=== PATIENT | male | born 1955 | race Caucasian/White ===

== ENCOUNTER → 2016-08-29 | Outpatient (CLI) | payer MEDICARE, OTHER ==
--- NOTE | 2016-08-29 08:11 | RAD ---
Carotid ultrasound, 08/29/2016: History: CVA Duplex evaluation of the carotid arteries in neck was performed including grayscale, color-flow and spectral Doppler analysis. There is mild atherosclerotic plaquing at both carotid bifurcations. The plaques are partially calcified. On the right the peak systolic velocity in the internal carotid artery is 56 cm/s with an end-diastolic velocity of 20 cm/s. On the left the peak systolic velocity in the internal carotid artery is 77 cm/s with an end-diastolic velocity of 25 cm/s. No significant velocity acceleration is seen at either carotid bifurcation to suggest hemodynamically significant stenosis. Antegrade flow is present in both vertebral arteries in the neck. IMPRESSION: Mild atherosclerotic plaquing at both carotid bifurcations with underlying luminal narrowing in the 0-50% diameter range bilaterally. Note: Stenosis calculations for CT, MRA and conventional angiography are based upon determination of the distal ICA diameter in accordance with the NASCET methodology. Stenosis calculations for Doppler studies are derived from validated velocity criteria which are known to correlate with NASCET methodology of determining stenosis.
--- NOTE | 2016-08-29 08:15 | RAD ---
CT of the head without contrast, 08/29/2016: History: Possible stroke, slurred speech, cheek swelling The ventricles are within normal limits in size. There is no shift of the midline structures. There is no evidence of acute intracranial hemorrhage or mass effect. IMPRESSION: No significant abnormality is detected. PQRS Compliance Statement: One or more of the following individualized dose reduction techniques were utilized for this examination: 1. Automated exposure control 2. Adjustment of the mA and/or kV according to patient size 3. Use of iterative reconstruction technique
--- NOTE | 2016-08-29 11:18 | CARD ---
APPROVED REPORT EXAM: Two-dimensional and M-mode echocardiogram with Doppler and color Doppler. Other Information Quality : Good INDICATION CVA/TIA 2D DIMENSIONS RVDd3.4 (2.9-3.5cm)Left Atrium(2D)4.2 (1.6-4.0cm) IVSd1.0 (0.7-1.1cm)Aortic Root(2D)2.9 (2.0-3.7cm) LVDd4.7 (3.9-5.9cm)LVOT Diameter2.2 (1.8-2.4cm) PWd1.0 (0.7-1.1cm)LVDs2.8 (2.5-4.0cm) FS (%) 39.9 %SV71.1 ml LVEF(%)60.0 (>50%) Aortic Valve AoV Peak Roman.147.3cm/sAoV VTI27.3cm AO Peak GR.8.7mmHgLVOT Peak Roman.130.5cm/s LVOT VTI 26.09cmAO Mean GR.5mmHg HANNAH (VMAX)3.01rw4LYI (VTI)3.64cm2 Mitral Valve MV E Htkhcnsa23.1cm/sMV DECEL [id number] MV A Ryrdwifj52.2cm/sMV PMR10zu E/A Ratio0.9MVA (PHT)2.73cm2 TDI E/Lateral E'9.8E/Medial E'9.9 Tricuspid Valve TR P. Bhgaswwx656hl/sRAP VMFSJYJW7hqFk TR Peak Gr.89qkMpYTTS55cfQj Pulmonary Vein S1 Hvuopvhf85.1cm/sD2 Ixztbonc76.4cm/s PVa [id number] LEFT VENTRICLE The left ventricle is normal size. There is normal left ventricular wall thickness. The left ventricu lar systolic function is normal. The Ejection Fraction is 55-60%. There is normal LV segmental wall m otion. Transmitral Doppler flow pattern is Grade I-abnormal relaxation pattern. RIGHT VENTRICLE The right ventricle is normal size. The right ventricular systolic function is normal. ATRIA The left atrium is mildly dilated. The right atrium size is normal. The interatrial septum is intact with no evidence for an atrial septal defect or patent foramen ovale as noted on 2-D or Doppler imagi ng. AORTIC VALVE The aortic valve is normal in structure and function. Doppler and Color Flow revealed no significant aortic regurgitation. There is no significant aortic valvular stenosis. MITRAL VALVE The mitral valve is normal in structure and function. There is no evidence of mitral valve prolapse. There is no mitral valve stenosis. Doppler and Color-flow revealed trace mitral regurgitation. TRICUSPID VALVE The tricuspid valve is normal in structure and function. Doppler and Color Flow revealed trace tricus pid regurgitation. The PA pressure was estimated at 21 mmHg. There is no tricuspid valve stenosis. PULMONIC VALVE The pulmonary valve is normal in structure and function. Doppler and Color Flow revealed mild pulmoni c valvular regurgitation. There is no pulmonic valvular stenosis. GREAT VESSELS The aortic root is normal in size. The ascending aorta is normal in size. The IVC is normal in size a nd collapses >50% with inspiration. PERICARDIAL EFFUSION There is no evidence of significant pericardial effusion. Critical Notification Critical Value: No <Conclusion> The left ventricular systolic function is normal. The Ejection Fraction is 55-60%. There is normal LV segmental wall motion. Transmitral Doppler flow pattern is Grade I-abnormal relaxation pattern. Trace mitral regurgitation. Trace tricuspid regurgitation. The PA pressure was estimated at 21 mmHg. There is no evidence of significant pericardial effusion.
== END | disposition home or self-care (01) ==
LOC: US 06:56
PROVIDERS: ATTEND Internal Medicine
DX: I08.1 Rheumatic disorders of both mitral and tricuspid valves (principal); I63.9 Cerebral infarction, unspecified; I65.23 Occlusion and stenosis of bilateral carotid arteries
CPT/HCPCS: 70450; 93306; 93880

== ENCOUNTER 2016-09-05 18:58 | Emergency (ER) | payer OTHER ==
[~2016-09-05] VITALS: Ht 175.3 cm; Wt 99.8 kg
[2016-09-05 19:26] LABS: BILIRUBIN,URINE NEGATIVE (NEG); GLUCOSE,URINE NEGATIVE (NEG); NITRITE,URINE NEGATIVE (NEG); PROTEIN,URINE NEGATIVE (NEG-TRACE); UROBILINOGEN,URINE 0.2 mg/dL (0.2 mg/dL)
[2016-09-05 19:31] LABS: BACTERIA,URINE FEW /HPF (0-FEW); RBC,URINE >40 /HPF (0-2)
[2016-09-05 19:32] LABS: SQUAMOUS EPITHELIAL CELL,UR FEW /LPF
[2016-09-05] MEDS ORDERED: IV NORMAL SALINE 1000ML BAG 1,000 ML IV ONE (20:00)
[2016-09-05] MEDS ORDERED: ONDANSETRON PF 4 MG/2 ML VIAL. IV ONE (20:00)
[2016-09-05] MEDS ORDERED: HYDROmorphone 2 MG/ML VIAL IV PRN (20:00)
[2016-09-05 20:18] LABS: BASO # 0.1 x10^3/uL (0.0-0.2); BASO % 1 % (0-3); EOS % 1 % (0-3); HEMATOCRIT 42.7 % (39.0-53.0); HEMOGLOBIN 14.4 g/dL (13.0-17.5); LYMPH # 1.4 x10^3/uL (1.0-4.8); LYMPH % 14 % (24-48); MEAN CORPUSCULAR HEMOGLOBIN 29 pg (25-35); MEAN CORPUSCULAR HGB CONC 34 g/dL (31-37); MEAN CORPUSCULAR VOLUME 86 fL (79-100); MONO % 6 % (0-9); NEUT % 79 % (31-73); PLATELET COUNT 209 x10^3/uL (140-400); RED BLOOD COUNT 4.95 x10^6/uL (4.30-5.70); RED CELL DISTRIBUTION WIDTH 13.9 % (11.5-14.5)
[2016-09-05] MEDS ORDERED: ONDA4TAB10 SL (20:27)
[2016-09-05] MEDS ORDERED: MORP15TA PO (20:27)
--- NOTE | 2016-09-05 20:27 | PHYS DOC ---
Past Medical History Past Medical History: Diabetes-Type II, GERD, High Cholesterol, Hypertension, Other Additional Past Medical Histor: SLURRED SPEECH Additional Past Surgical Histo: EYE SX, COLONOSCOPY Alcohol Use: Heavy Drug Use: None Adult General Chief Complaint Chief Complaint: FLANK PAIN HPI HPI 61-year-old male presenting to the emergency department today with right flank pain primarily. His pain is been present for proximally 7 days. It radiates from the flank down into the groin. He denies dysuria or hematuria. His been taking ibuprofen with mild relief. The pain is moderate to severe intermittent and without alleviating factors. Review of systems is negative for syncope, lightheadedness, abdominal pain nausea vomiting or diaphoresis. All other review of systems is negative unless otherwise noted in history of present illness. Review of Systems Review of Systems SEE ABOVE. Current Medications Current Medications Current Medications Medications (Trade) Dose Ordered Sig/Estrella Start Time Stop Time Status Last Admin Dose Admin Hydromorphone HCl (Dilaudid) 0.5 mg PRN Q1HR PRN 09/05/16 20:00 09/05/16 20:23 0.5 MG Ondansetron HCl (Zofran) 4 mg 1X ONCE 09/05/16 20:00 09/05/16 20:01 DC 09/05/16 20:23 4 MG Sodium Chloride 1,000 ml @ 1,000 mls/hr 1X ONCE 09/05/16 20:00 09/05/16 20:59 09/05/16 20:23 1,000 MLS/HR Allergies Allergies Allergies Coded Allergies Type Severity Reaction Last Updated Verified No Known Drug Allergies 09/05/16 No Physical Exam Physical Exam Constitutional: Well developed, well nourished, no acute distress, non-toxic appearance. [] HENT: Normocephalic, atraumatic, bilateral external ears normal, oropharynx moist, no oral exudates, nose normal. Eyes: PERRLA, EOMI, conjunctiva normal, no discharge. [] Neck: Normal range of motion, no tenderness, supple, no stridor. [] Cardiovascular:Heart rate regular rhythm, no murmur [] Lungs & Thorax: Bilateral breath sounds clear to auscultation Abdomen: Soft nontender abdomen without rebound tenderness or guarding present. Negative McBurneys point. Negative Gonzalez sign. No ecchymosis present. Skin: Warm, dry, no erythema, no rash. Back: No tenderness, the patient's right CVA is mildly tender to palpation. Extremities: No tenderness, no cyanosis, no clubbing, ROM intact, no edema. Neurologic: Alert and oriented X 3, normal motor function, normal sensory function, no focal deficits noted. [] Psychologic: Affect normal, judgement normal, mood normal. [] Current Patient Data Vital Signs Vital Signs Date Time Temp Pulse Resp B/P (MAP) Pulse Ox O2 Delivery O2 Flow Rate FiO2 09/05/16 19:10 98.5 80 16 187/109 (135) 94 Room Air 98.5 Lab Values Laboratory Tests Test 09/05/16 19:10 09/05/16 20:10 Urine Collection Type Unknown Urine Color Yellow Urine Clarity Clear Urine pH 5.0 Urine Specific [place] 1.025 Urine Protein Negative mg/dL (NEG-TRACE) Urine Glucose (UA) Negative mg/dL (NEG) Urine Ketones (Stick) Negative mg/dL (NEG) Urine Blood Large (NEG) Urine Nitrite Negative (NEG) Urine Bilirubin Negative (NEG) Urine Urobilinogen Dipstick 0.2 mg/dL (0.2 mg/dL) Urine Leukocyte Esterase Small (NEG) Urine RBC >40 /HPF (0-2) Urine WBC 5-10 /HPF (0-4) Urine Squamous Epithelial Cells Few /LPF Urine Bacteria Few /HPF (0-FEW) Urine Hyaline Casts Few /HPF Urine Mucus Mod /LPF White Blood Count 10.0 x10^3/uL (4.0-11.0) Red Blood Count 4.95 x10^6/uL (4.30-5.70) Hemoglobin 14.4 g/dL (13.0-17.5) Hematocrit 42.7 % (39.0-53.0) Mean Corpuscular Volume 86 fL (79-100) Mean Corpuscular Hemoglobin 29 pg (25-35) Mean Corpuscular Hemoglobin Concent 34 g/dL (31-37) Red Cell Distribution Width 13.9 % (11.5-14.5) Platelet Count 209 x10^3/uL (140-400) Neutrophils (%) (Auto) 79 % (31-73) H Lymphocytes (%) (Auto) 14 % (24-48) L Monocytes (%) (Auto) 6 % (0-9) Eosinophils (%) (Auto) 1 % (0-3) Basophils (%) (Auto) 1 % (0-3) Neutrophils # (Auto) 7.9 x10^3uL (1.8-7.7) H Lymphocytes # (Auto) 1.4 x10^3/uL (1.0-4.8) Monocytes # (Auto) 0.6 x10^3/uL (0.0-1.1) Eosinophils # (Auto) 0.1 x10^3/uL (0.0-0.7) Basophils # (Auto) 0.1 x10^3/uL (0.0-0.2) Sodium Level 140 mmol/L (136-145) Potassium Level 4.4 mmol/L (3.5-5.1) Chloride Level 102 mmol/L (98-107) Carbon Dioxide Level 27 mmol/L (21-32) Anion Gap 11 (6-14) Blood Urea Nitrogen 16 mg/dL (8-26) Creatinine 1.3 mg/dL (0.7-1.3) Estimated GFR (Cockcroft-Gault) 56.1 Glucose Level 173 mg/dL (70-99) H Calcium Level 9.2 mg/dL (8.5-10.1) Total Bilirubin 0.4 mg/dL (0.2-1.0) Direct Bilirubin < 0.1 mg/dL (0.0-0.2) Aspartate Amino Transferase (AST) 31 U/L (15-37) Alanine Aminotransferase (ALT) 27 U/L (16-63) Alkaline Phosphatase 83 U/L (46-116) Total Protein 8.0 g/dL (6.4-8.2) Albumin 4.1 g/dL (3.4-5.0) Laboratory Tests 09/05/16 20:10 Laboratory Tests 09/05/16 20:10 EKG EKG [] Radiology/Procedures Radiology/Procedures [] Course & Med Decision Making Course & Med Decision Making Pertinent Labs and Imaging studies reviewed. (See chart for details) [] 61-year-old male presenting with right flank pain. Vital signs afebrile with a normal heart rate. Hypertensive which is chronic. Pertinent physical exam findings showed right CVA tenderness. No pulsatile masses present on abdominal exam. Palpable pulses in all extremities. Labs were obtained along with CT of the abdomen pelvis. On reexamination the patient was feeling better. CT the abdomen pelvis showed right nephrolithiasis. Hematuria on urinalysis and otherwise unremarkable blood work. The patient was then discharged home in stable condition to follow up with their primary care physician over the next 2- 3 days. They were to return if their symptoms worsened or if they were concerned for any reason. [id number] discharge instructions and return precautions were given. Patient's questions were answered to their satisfaction. Patient is comfortable plan. Dragon Disclaimer Dragon Disclaimer This electronic medical record was generated, in whole or in part, using a voice recognition dictation system. Departure Departure Impression: Primary Impression: Right flank pain Disposition: HOME, SELF-CARE Condition: STABLE Referrals: ALISSON STEPHENS MD (PCP) LONG BISHOP DO Patient Instructions: Flank Pain, Kidney Stones Additional Instructions: Thank you for allowing us to participate in your care today. Followup with your primary care physician in 3 days if your symptoms do not improve. If you do not have a primary care provider you can ask for a list of our primary care providers. Return to the emergency department you have any new or concerning findings. This should be evaluated by the primary care physician and any necessary consulting services for continued management within a few days after discharge. Return to emergency room if you have any new or concerning symptoms including but not limited to fever, chills, nausea, vomiting, intractable pain, any new rashes, chest pain, shortness of air, uncontrolled bleeding, difficulty breathing, and/or vision loss. You may have been prescribed medication that can change in your level of thinking and ability to operate machinery. These medications include hydrocodone and Ativan. Also, Benadryl has been known to do this as well. Be sure to check with your pharmacist and ask if the medications you've prescribed can affect your level of consciousness. I recommend not operating heavy machinery or driving while on medication such as these. Scripts Ondansetron (ZOFRAN ODT) 4 Mg Tab.rapdis 1 TAB SL PRN Q8HRS Y for NAUSEA, #6 TAB Prov: MIKAYLA GUAJARDO MD 09/05/16 Morphine Sulfate (MORPHINE SULFATE) 15 Mg Tablet 1 TAB PO PRN Q6-8HRS Y for SEVERE PAIN, #8 TAB Prov: MIKAYLA GUAJARDO MD 09/05/16 MIKAYLA GUAJARDO MD September 05, 2016 20:27
[2016-09-05 20:30] LABS: ANION GAP 11 (6-14); BLOOD UREA NITROGEN 16 mg/dL (8-26); CALCIUM 9.2 mg/dL (8.5-10.1); CARBON DIOXIDE 27 mmol/L (21-32); CHLORIDE 102 mmol/L (98-107); CREATININE 1.3 mg/dL (0.7-1.3); GFR 56.1; GLUCOSE 173 mg/dL (70-99); POTASSIUM 4.4 mmol/L (3.5-5.1); SODIUM 140 mmol/L (136-145)
[2016-09-05 20:33] VITALS: BP 170/80
--- NOTE | 2016-09-05 20:33 | RAD ---
CT Abdomen and Pelvis without contrast History: Worsening right flank pain for one week Technique: Noncontrast CT imaging was performed of the abdomen and pelvis. Multiplanar images are reviewed. Exposure: One or more of the following individualized dose reduction techniques were utilized for this examination: 1. Automated exposure control 2. Adjustment of the mA and/or kV according to patient size 3. Use of iterative reconstruction technique. Comparison: None Findings: There is mild right hydronephrosis and proximal right hydroureter, 0.5 cm calculus in the proximal right ureter at the L4 level. There is strandy change in the perinephric fat bilaterally greater on the right. There are no renal calculi. There is 2.6 cm exophytic focus of density of the superior left kidney with density measurements suggestive of a cyst 16 Hounsfield units. There is some atelectasis visualized right lung base. There is some motion degradation.Accurate evaluation of abdominal visceral organs is limited without intravenous contrast. There is no obvious abnormality of the spleen, liver, or pancreas. There is no adrenal nodularity. Accurate evaluation of bowel is limited without oral contrast. There is no significant free air, free fluid, bowel dilatation. There is scattered mild diverticulosis of the sigmoid and descending colon without evidence of diverticulitis. Normal caliber appendix is visualized. There is scattered atherosclerotic calcification of the abdominal aorta. There is some fat within the inguinal canals bilaterally greater on the left, no bowel. There is more advanced degenerative disease L5-S1. There is multilevel thoracic spondylosis. 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 Impression: 1. There is mild right hydronephrosis and proximal right hydroureter, 0.5 cm calculus proximal right ureter. 2. There is a likely cyst of the superior left kidney. 3. There is mild colonic diverticulosis without evidence of diverticulitis. There is no CT evidence of acute appendicitis. Electronically signed by: Matthew Wray MD (09/05/2016 8:30 PM)
[2016-09-05 20:35] LABS: ALBUMIN 4.1 g/dL (3.4-5.0); ALK PHOS 83 U/L (46-116); ALT (SGPT) 27 U/L (16-63); AST (SGOT) 31 U/L (15-37); DIRECT BILIRUBIN < 0.1 mg/dL (0.0-0.2); TOTAL BILIRUBIN 0.4 mg/dL (0.2-1.0)
== END 2016-09-05 21:03 | disposition home or self-care (01) ==
LOC: ER 18:58
DX: R10.9 Unspecified abdominal pain (principal); E11.9 Type 2 diabetes mellitus without complications; K21.9 Gastro-esophageal reflux disease without esophagitis; E78.00 Pure hypercholesterolemia, unspecified; I10 Essential (primary) hypertension; F10.10 Alcohol abuse, uncomplicated
CPT/HCPCS: 36415; 74176; 80048; 80076; 81001; 85027; 87086; 96374; 96375; 99285; J1170; J2405; J7030

== ENCOUNTER 2016-11-13 09:11 | Outpatient (CLI) | payer OTHER ==
[~2016-11-13 09:11] MED LIST: AMLO10TA2 PO; ATOR20TA58 PO; AZEL23SP NS; CETI10TA16 PO; DIAZEPAM10 MG PO; ERGO500027 PO; FURO40TA4 PO; LISI40TA PO; MELO15TA23 PO; METF-620 PO; MORP15TA PO; OMEP40CA5 PO; ONDA4TAB10 SL; POTA10TA5 PO; POTA20LI27 PEG
[2016-11-13] MEDS ORDERED: MIDAZOLAM HCL/PF 2 MG/2 ML VIAL. ONE (09:52)
[2016-11-13] MEDS ORDERED: PROPOFOL 40 ML IV ONE (09:52)
[2016-11-13] MEDS ORDERED: LIDOCAINE 2% 100 MG/5 ML SYRINGE. ONE (09:52)
--- NOTE | 2016-11-13 10:53 | RAD ---
INDICATION: Dysphagia, slurred speech. TECHNIQUE: Sagittal T1, sagittal T2, sagittal STIR, axial T2, and axial T2 gradient sequences are provided. There is mild motion degradation. There is no comparison study available. FINDINGS: There is no malalignment. There is no worrisome marrow lesion. There is narrowing of the interspace at C5-C6 most notably. Endplate edema appears degenerative at C6-C7. There is no cord signal abnormality allowing for motion limitation. Cervicomedullary junction is unremarkable. Degenerative findings will be estimated below, allowing for motion limitations: C2-C3: There is no canal or foraminal compromise. C3-C4: Disc osteophyte complex and uncinate process spurring are noted. There is buckling of ligamentum flavum and mild facet hypertrophy. There is mild canal stenosis and moderate foraminal narrowing. C4-C5: Disc osteophyte complex and uncinate process spurring are noted. There is facet hypertrophy. There is mild canal stenosis. There is [id number]-ow-orcdpufl foraminal narrowing. C5-C6: Disc osteophyte complex and uncinate process spurring are noted. There is mild canal stenosis and at least igtq-im-onuvwlov foraminal narrowing. C6-C7: Disc osteophyte complex and uncinate process spurring are noted. There is buckling of ligamentum flavum. Foraminal narrowing is probably moderate. Canal stenosis appears minimal. C7-T1: There is no canal or foraminal compromise. There is a right thyroid nodule measuring 9 mm. IMPRESSION: 1. Multilevel degenerative changes with mild canal stenosis and high-grade foraminal narrowing noted at several levels. 2. There is motion degradation, especially on the axial T2 gradient sequence. Degree of canal and foraminal compromise has been estimated above, although given motion limitations a postmyelogram CT may be of benefit prior to any surgical intervention. Electronically signed by: Laith Vee MD (11/13/2016 10:50 AM) [id number]
[2016-11-13 11:49] VITALS: BP 129/80
== END 2016-11-13 11:00 | disposition home or self-care (01) ==
LOC: MRI 09:11
PROVIDERS: ATTEND Psychiatry & Neurology Neurology with Special Qualifications in Child Neurology
DX: M48.02 Spinal stenosis, cervical region (principal); M47.892 Other spondylosis, cervical region; M24.28 Disorder of ligament, vertebrae; E04.1 Nontoxic single thyroid nodule; R13.10 Dysphagia, unspecified; R47.81 Slurred speech
CPT/HCPCS: 72141; J2250; J2704